=== PATIENT | male | born 1955 | race American Indian/Alaskan Native ===

== ENCOUNTER 2017-06-04 12:44 | Outpatient (CLI) | payer OTHER ==
--- NOTE | 2017-06-04 14:31 | XRay Report ---
XRAY LEFT HIP THREE VIEWS: 06/04/17 12:44:00 CLINICAL: Left hip pain. 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 No fracture or dislocation. The pelvic bones are intact. Normal soft tissues. Mild arthritis of the right hip. IMPRESSION: Negative study status post left total hip replacement.
== END 2017-06-04 12:45 | disposition home or self-care (01) ==
LOC: SPVIMAG 12:44
PROVIDERS: ATTEND Orthopaedic Surgery Sports Medicine
DX: M25.552 Pain in left hip (principal); Z96.642 Presence of left artificial hip joint